=== PATIENT | female | born 1985 | race Caucasian/White ===

== ENCOUNTER 2020-12-11 06:28 | Inpatient (IN) | payer BC ==
[2020-12-11] MEDS ORDERED: LIDOCAINE 0.5% (PF) 5 MG/ML (50 ML SDV) SQ PRN (06:46)
[2020-12-11] MEDS ORDERED: METHYLERGONOVINE 0.2 MG/ML 1 ML AMP IM PRN (06:46)
[2020-12-11] MEDS ORDERED: TERBUTALINE 1 MG/ML VIAL SQ PRN (06:46)
[2020-12-11] MEDS ORDERED: OXYTOCIN 10 UNIT/ML 1 ML VIAL IM PRN (06:46)
[2020-12-11] MEDS ORDERED: CARBOPROST TROMETHAMINE 250 MCG/ML 1 ML AMP IM PRN (06:46)
[2020-12-11 06:55] VITALS: RESP 16
[2020-12-11] MEDS: LACTATED RINGERS 1,000 ML IV SCH ×2 (06:55→13:25)
[2020-12-11] MEDS ORDERED: OXYTOCIN 30 UNITS/500 ML NS 30 UNIT in SALINE 1 500ML.BAG IV SCH ×2 (07:00→19:15)
[2020-12-11 07:14] LABS: Basophils % (A) 0 %; Eosinophils # (A) 0.1 k/uL (0-0.7); Eosinophils % (A) 1 %; HCT 35.5 % (34.0-46.0); HGB 12.2 gm/dL (11.4-16.0); Lymphocytes # (A) 1.5 k/uL (1.0-4.8); Lymphocytes % (A) 21 %; MCHC 34.3 g/dL (31.0-37.0); MCV 93.5 fL (80.0-100.0); Mean Platelet Volume 11.4; Monocytes # (A) 0.5 k/uL (0-1.0); Monocytes % (A) 7 %; Neutrophils % (A) 69 %; Platelet Count 196 k/uL (150-450); RDW 12.2 % (11.5-15.5); WBC 7.3 k/uL (3.8-10.6)
[2020-12-11] MEDS ORDERED: BUTORPHANOL 1 MG/ML 1 ML VIAL IV PRN (08:53)
--- NOTE | 2020-12-11 08:53 | P.HPOB ---
History of Present Illness H&P Date: 12/11/20 Chief Complaint: 39 and one sevenths weeks, elective induction The patient is a 34-year-old 3 para 1011 admitted at 39 and one sevenths weeks as established by seven-week ultrasound. She is admitted for elective induction with all signs reassuring. Her has been uncomplicated. She falls into the category of advanced maternal age and declined trisomy testing. Group B strep status is negative. Obstetrical history: 3 para 1011 with 1 early miscarriage and one term vaginal delivery without compilations. Current statistics are listed in history present illness. EDC of 12/17/2020 was established by seven-week ultrasound. Laboratory workup demonstrates a blood type of O+ with a negative antibody screen. Rubella status is immune. The remainder of the laboratory workup was within normal limits. One hour Glucola was normal and group B strep status is negative. Gynecologic history: Unremarkable with no history of any infections to include STDs. Review of Systems Review of systems is confined to history of present illness. Past Medical History Additional Past Medical History / Comment(s): heart murmur History of Any Multi-Drug Resistant Organisms: None Reported Additional Past Surgical History / Comment(s): lasik surgery 2007 Carpal Tunnel surgery 2016 Past Anesthesia/Blood Transfusion Reactions: No Reported Reaction Past Psychological History: Anxiety Smoking Status: Never smoker Past Alcohol Use History: None Reported Past Drug Use History: None Reported - Past Family History Father Family Medical History: COPD Additional Family Medical History / Comment(s): Anxiety Medications and Allergies Home Medications Medication Instructions Recorded Confirmed Type Pkw-Gicg-Snjsp Acid 1 tab PO DAILY 09/07/13 12/11/20 History [-U Capsule (formulary)] Loratadine-Pseudoeph 10-240 mg 10 tab PO DAILY 12/11/20 12/11/20 History [Claritin-D 24 Hour] Allergies Allergy/AdvReac Type Severity Reaction Status Date / Time No Known Allergies Allergy Verified 12/11/20 06:44 Exam Vital Signs Temp Pulse Resp BP 12/11/20 06:48 98.0 F 91 16 111/71 Intake and Output 12/10/20 12/11/20 12/11/20 22:59 06:59 14:59 Other: Weight 89.811 kg In general, this is a well-developed, well-nourished white female in no acute distress. Her heart has a regular rhythm and rate without murmur. Her lungs are clear to auscultation bilaterally in all hooker. Her abdomen is gravid, nondistended, has normal active bowel sounds, soft, nontender, and without any palpable masses aside from the uterine fundus. Her extremities are without any cyanosis, clubbing, or edema and are nontender to palpation bilaterally. Digital cervical examination on straights her cervix to be 2+ centimeters dilated, 60% effaced, with the vertex in presentation at -2 station. Artificial rupture of membranes is carried out demonstrating minimal clear fluid. Results Result Diagrams: 12/11/20 06:52 Assessment and Plan (1) Term Current Visit: Yes Status: Acute Code(s): Z34.90 - ENCNTR FOR SUPRVSN OF NORMAL , UNSP, UNSP TRIMESTER SNOMED Code(s): 35615202 Plan: The patient is admitted for elective induction of labor. The risks and, occasions of elective induction of been discussed and she is understood and agreed to proceed. Pitocin augmentation has been started and she has undergone artificial rupture members. She'll have close maternal and surveillance and expectant management will be practiced. She is a good candidate for either IV or epidural analgesia, whichever she may choose.
[2020-12-11] MEDS ORDERED: ROPIVACAINE 5MG/ML 20ML VIAL ONE (14:58)
[2020-12-11] MEDS ORDERED: fentaNYL (PF) 50 MCG/ML 5 ML AMP ONE (14:58)
[2020-12-11] MEDS ORDERED: SODIUM CHLORIDE 0.9% 100 ML BAG ONE (14:58)
[2020-12-11] MEDS ORDERED: diphenhydrAMINE 50 MG CAP PO PRN (19:14)
[2020-12-11] MEDS ORDERED: LANOLIN CREAM 5 GM TUBE TOPICAL PRN (19:14)
[2020-12-11] MEDS ORDERED: SIMETHICONE 80 MG CHEWABLE PO PRN (19:14)
[2020-12-11] MEDS ORDERED: diphenhydrAMINE 25 MG CAP PO PRN (19:14)
[2020-12-11] MEDS ORDERED: ZOLPIDEM 5 MG TAB PO PRN (19:14)
[2020-12-11] MEDS ORDERED: HYDROcodone/APAP 5-325MG 1 EACH TAB PO PRN (19:14)
[2020-12-11] MEDS ORDERED: BENZOCAINE/MENTHOL SPRAY 1 GM/SPRAY AEROSOL TOPICAL PRN (19:14)
[2020-12-11] MEDS ORDERED: diphenhydrAMINE 50 MG/ML 1 ML VIAL IVP PRN ×2 (19:14)
[2020-12-11] MEDS ORDERED: HYDROCORTISONE 2.5% RECTAL CREAM 30 GM TUBE RECTAL PRN (19:14)
[2020-12-11] MEDS ORDERED: HYDROcodone/APAP 7.5-325MG 1 EACH TAB PO PRN (19:14)
--- NOTE | 2020-12-11 19:18 | P.PROBDLV ---
Vaginal Delivery Note - . Vaginal Delivery Note: The patient is a 34-year-old 3 para 1011 admitted at 39 and one sevenths weeks by good dating parameters perches admitted for elective induction of labor secondary to discomfort. Her has been entirely uncomplicated and group B strep status is negative. On labor and delivery, all signs reassuring with a category 1 heart rate tracing. She had Pitocin augmentation started followed by artificial rupture of membranes for clear fluid. She made progress through the latent phase of labor and had an epidural catheter placed for analgesia. She then progressed ultimately to complete and pushed over the course of 1 contraction to a normal spontaneous vaginal delivery of a viable 7 lbs. 5 oz. baby boy with Apgars of 8 at 1 minute and 9 at 5 minutes delivered in the left occiput anterior position. There was a nuchal cord 1 which was reduced following delivery of the infant. The placenta was delivered spontaneously, intact, and grossly normal with a grossly normal three-vessel cord inserted approximate 4-5 cm from the margin of the placental disc. There were no lacerations of the perineum, vagina, or cervix. All sponge, instrument, needle counts were correct. There were no complications. Estimated blood loss is approximately 200 mL. Both mother and infant are resting comfortably in recovery.
[2020-12-11] MEDS: SENNOSIDES-DOCUSATE SODIUM 1 EACH TAB PO SCH (22:55)
[2020-12-12 07:34] LABS: Basophils # (A) 0.1 k/uL (0-0.2); Basophils % (A) 0 %; Eosinophils # (A) 0.1 k/uL (0-0.7); Eosinophils % (A) 1 %; HCT 36.5 % (34.0-46.0); HGB 12.4 gm/dL (11.4-16.0); Lymphocytes # (A) 1.5 k/uL (1.0-4.8); Lymphocytes % (A) 10 %; MCH 32.3 pg (25.0-35.0); Mean Platelet Volume 10.8; Monocytes # (A) 0.8 k/uL (0-1.0); Monocytes % (A) 5 %; Neutrophils % (A) 82 %; Platelet Count 202 k/uL (150-450); RBC 3.85 m/uL (3.80-5.40); RDW 12.9 % (11.5-15.5); WBC 14.7 k/uL (3.8-10.6)
[2020-12-12] MEDS: SENNOSIDES-DOCUSATE SODIUM 1 EACH TAB PO SCH (07:44)
[2020-12-12] MEDS: IBUPROFEN 600 MG TAB PO PRN ×2 (07:44→13:57)
--- NOTE | 2020-12-12 08:40 | P.DS ---
Providers Date of admission: 12/11/20 06:28 Expected date of discharge: 12/12/20 Attending physician: Joel Machado Primary care physician: Stated None - Discharge Diagnosis(es) (1) Term Current Visit: Yes Status: Acute (2) Normal vaginal delivery Current Visit: Yes Status: Acute Hospital Course: The patient is a 34-year-old 3 para 1011 admitted at 39 and one sevenths weeks by good dating parameters. She is admitted for elective induction with all signs reassuring. Her was uncomplicated and group B strep status is negative. On labor and delivery, she had Pitocin started followed by artificial rupture of membranes. She progressed and had an epidural catheter placed and ultimately progressed to complete. She pushed quickly to a normal spontaneous vaginal delivery of a viable 7 lbs. 5 oz. baby boy with Apgars of 8 at 1 minute and 9 at 5 minutes. Her course was unremarkable vital signs remaining stable and her temperature was afebrile throughout. She was deemed stable for discharge on day #1 and was discharged to home to follow-up in the office in 6 weeks' time routinely. Discharge instructions included calling for any significantly increased bleeding or foul-smelling lochia, significantly increased fever abdominal pain, perineal complaints, breast complaints, or anything else that concerned her. She was additionally instructed to have nothing in the vagina for at least 6 weeks time to include intercourse. She understood her instructions and agrees to follow up as noted above. Discharge medications included only [id number]-[id number] analgesic pain medications as well as continued vitamins as she has opted to breast- feed. Maternal blood type is O+ and rubella status is immune. Procedures: #1. Pitocin induction #2. Artificial rupture of membranes #3. Epidural analgesia #4. Normal spontaneous vaginal delivery Patient Condition at Discharge: Stable Plan - Discharge Summary New Discharge Prescriptions: No Action Oek-Iaej-Qkhfa Acid [-U Capsule (formulary)] 1 tab PO DAILY Loratadine-Pseudoeph 10-240 mg [Claritin-D 24 Hour] 10 tab PO DAILY Discharge Medication List Eqt-Ktqr-[id number] Acid [-U Capsule (formulary)] 1 tab PO DAILY 09/07/13 [History] Loratadine-Pseudoeph 10-240 mg [Claritin-D 24 Hour] 10 tab PO DAILY 12/11/20 [History] Follow up Appointment(s)/Referral(s): Joel Machado MD [STAFF PHYSICIAN] - 6 Weeks Discharge Disposition: HOME SELF-CARE
[2020-12-12 17:50] VITALS: BP 111/68; PULSE 78; TEMP 97.4
== END 2020-12-12 19:20 | disposition home or self-care (01) | DRG 807 ==
LOC: 4FBP 06:28
PROVIDERS: ADMIT Obstetrics & Gynecology; ATTEND Obstetrics & Gynecology
PROC: 10E0XZZ Delivery of Products of Conception, External Approach (ICD-10-PCS; principal; 2020-12-11)
PROC: 3E033VJ Introduction of Other Hormone into Peripheral Vein, Percutaneous Approach (ICD-10-PCS; 2020-12-11)
PROC: 10907ZC Drainage of Amniotic Fluid, Therapeutic from Products of Conception, Via Natural or Artificial Opening (ICD-10-PCS; 2020-12-11)
DX: O99.344 Other mental disorders complicating childbirth (principal); Z37.0 Single live birth; F41.9 Anxiety disorder, unspecified; O69.81X0 Labor and delivery complicated by cord around neck, without compression, not applicable or unspecified; Z82.5 Family history of asthma and other chronic lower respiratory diseases; Z3A.39 39 weeks gestation of pregnancy
CPT/HCPCS: 85025; 86850; 86900; 86901

== ENCOUNTER → 2022-01-26 | Outpatient (CLI) | payer BC ==
--- NOTE | 2022-01-26 14:25 | MR ---
MR brain without contrast HISTORY: Headaches and dizziness, history of trauma Multiplanar multisequence imaging obtained through the brain No comparisons There is no restricted diffusion. The corpus callosum, pituitary, cervical medullary junction, cerebe llopontine angles are normal. There is no hemorrhage or hydrocephalus. Orbits show symmetric appearan ce. There are expected vascular flow voids. Some mild inflammatory change present in the ethmoid air cells, left maxillary sinus. Mastoids are well aerated. Brain signal is maintained. Probable Thorn[place] dt cyst noted in the midline posterior pharyngeal soft tissues. IMPRESSION: Normal brain MRI. Mild sinus disease and additional findings above
== END | disposition home or self-care (01) ==
LOC: RADMRIMAIN 09:31
PROVIDERS: ATTEND Nurse Practitioner Family
DX: Q04.8 Other specified congenital malformations of brain (principal)
CPT/HCPCS: 70551

== ENCOUNTER 2022-05-20 07:35 | Day surgery (SDC) | payer BC ==
[2022-05-15 12:22] VITALS: BMI 28.6
[~2022-05-20 07:35] MED LIST: DEXAMETHASONE SOD PHOSPHATE 4 MG/ML 1 ML VIAL IV ONE; DEXAMETHASONE SOD PHOSPHATE 4 MG/ML 1 ML VIAL IV PRN; FAMOTIDINE 20 MG/2 ML VIAL IV PRN; HYDROmorphone 0.5 MG/0.5 ML SYRINGE IVP PRN; LACTATED RINGERS 1,000 ML IV SCH; LIDOCAINE 1% (10MG/ML) FOR IV START INTRADERMA PRN; ONDANSETRON 4 MG/2 ML VIAL IVP ONE; ONDANSETRON 4 MG/2 ML VIAL IVP PRN; OXYMETAZOLINE 0.05% NASL SPRAY 1 SPRAY BOTTLE EA NOSTRIL PRN; SCOPOLAMINE 1 MG/72 HR PATCH TRANSDERM ONE
[2022-05-20] MEDS ORDERED: MIDAZOLAM 2 MG/2 ML VIAL IVP ONE (08:50)
[2022-05-20] MEDS ORDERED: MIDAZOLAM 2 MG/2 ML VIAL ONE (10:02)
[2022-05-20] MEDS ORDERED: fentaNYL (PF) 50 MCG/ML 2 ML AMP ONE (10:02)
[2022-05-20] MEDS ORDERED: LIDOCAINE 4% LTA KIT (4 ML) TOPICAL ONE (10:02)
[2022-05-20] MEDS ORDERED: PROPOFOL 10 MG/ML 20 ML VIAL IV ONE (10:02)
[2022-05-20] MEDS ORDERED: LIDOCAINE 2% INJ 20 MG/ML (2 ML VIAL) ONE (10:02)
[2022-05-20] MEDS ORDERED: SUCCINYLCHOLINE CHLORIDE 200 MG/10 ML VIAL IV ONE (10:02)
[2022-05-20] MEDS ORDERED: LIDOCAINE 1%-EPI 1:100,000 20 ML VIAL SQ ONE (10:33)
[2022-05-20] MEDS ORDERED: BACITRACIN ZINC 500 UNIT/GM OINT 28.4 GM TUBE TOPICAL ONE (11:03)
--- NOTE | 2022-05-20 11:13 | P.OP ---
Date of Procedure: 05/20/22 Preoperative Diagnosis: Deviated nasal septum Inferior turbinate hypertrophy Chronic sinusitis Nasopharyngeal cyst Postoperative Diagnosis: Same Procedure(s) Performed: Septoplasty Outfracture and submucous resection of the inferior turbinates Bilateral endoscopic sinus surgery including bilateral maxillary antrostomy Excision Nasopharyngeal cyst Anesthesia: KARMEN Surgeon: Eliud Mcclain Estimated Blood Loss (ml): 8 Pathology: other (Nasal septal bone and cartilageSinus contentsNasopharyngeal cyst) Condition: stable Disposition: PACU Indications for Procedure: This 36 show white female whose had difficulties with chronic nasal airway obstruction recurrent and chronic sinusitis as well as notable nasopharyngeal cyst on nasal endoscopy Operative Findings: Nasal septum deviated to the left with inferior turbinate hypertrophy bilaterally maxillary ostia were obstructed bilaterally with thickening throughout the maxillary sinuses, approximate 1.5 cm nasopharyngeal cyst on the posterior superior Description of Procedure: The patient was brought into the operative suite and placed in a supine position. The patient underwent induction of general anesthesia with oral endotracheal intubation without difficulty. The patient was prepped and draped in the usual aseptic fashion with the orbits in the operating field for monitoring to the case and the computed tomography scan was on the computer screen for review throughout the case. 1% lidocaine with 1 :100,000 epinephrine was infused submucosally into both sides of the nasal septum as well as the lateral nasal wall and anterior tips of the middle turbinates. While this was taking vasoconstrictive effect the inferior turbinates were infractured with [place] elevator and partial submucous resection of the inferior turbinates was performed with a portion of the s ubmucosal soft tissue and the inferior turbinate bone removed with Coblation device. The inferior turbinates were then outfractured with the [place] elevator. A left hemitransfixion incision was then made with the mucoperichondrial and mucoperiosteal flap on the left elevated. The bony cartilaginous junction was disarticulated and the mucoperiosteal flap on the right was elevated. Bony nasal septal deformities were removed with Bernabe forceps and an inferior cartilaginous strip was removed leaving a full 1.5 cm caudal strut. Checking intranasally this corrected the nasoseptal deformities and the hemitransfixion incision was closed with a running 4-0 chromic suture. Full 0 endoscopic examination is performed bilaterally. Beginning on the left, the middle turbinate was medialized. The maxillary ostium was located with a ballpoint probe and an infundibulotomy was performed followed by uncinectomy. The maxillary antrostomy was enlarged at the expense of the anterior and posterior fontanelle taking care anteriorly not to injure the lacrimal bone. The maxillary sinus was evaluated with 30 and 70 endoscope . Attention was then turned to the right where the right middle turbinate was medialized maxillary ostium was opened as on the left. The nasopharynx cyst was then excised under the endoscopic evaluation and visualization with straight Blakesley forceps marsupializing this. Hemostasis was gained with suction cautery. There was thick mucous drainage in this cyst which was suctioned. Excellent hemostasis was noted. [Nasopore nasal dressing was placed in the middle meatus bilaterally under direct visualization]. Bilateral Valdez airway splints coated with bacitracin ointment were placed and sutured transseptally with a 4-0 nylon suture. The patient was suctioned in oral gastric fashion and was allowed to emerge from general anesthesia having tolerated procedure well and was extubated in the operating suite and transferred to the postoperative recovery area in satisfactory condition.
[2022-05-20 11:20] VITALS: TEMP 97.7
[2022-05-20] MEDS ORDERED: HYDROmorphone 0.5 MG/0.5 ML SYRINGE IVP ONE (11:36)
[2022-05-20] MEDS ORDERED: HYDROcodone/APAP 5-325MG 1 EACH TAB ONE (12:35)
[2022-05-20] MEDS ORDERED: HYDROcodone/APAP 5-325MG 1 EACH TAB PO ONE (12:37)
[2022-05-20 12:45] VITALS: BP 128/62; PULSE 59; RESP 15
== END 2022-05-20 13:07 | disposition home or self-care (01) ==
LOC: OR 07:35
PROVIDERS: ATTEND Otolaryngology
DX: J34.2 Deviated nasal septum (principal); J34.3 Hypertrophy of nasal turbinates; J01.90 Acute sinusitis, unspecified; F32.A Depression, unspecified; Z79.899 Other long term (current) drug therapy; J39.2 Other diseases of pharynx
CPT/HCPCS: 81025; 30520; 31267; 41800; 30140; J2250; J0330; J1100; J0690; J2405; J3010; J2704; J1170; J2001

== ENCOUNTER → 2023-07-01 | Day surgery (SDC) | payer BC ==
[2023-06-28 16:15] VITALS: BMI 28.1
[2023-07-01] MEDS: SODIUM CHLORIDE 0.9% 1,000 ML IV SCH (08:02)
[2023-07-01 08:26] VITALS: BP 115/73; PULSE 84; RESP 16; TEMP 98.4
[2023-07-01 14:54] LABS: HCT 43.1 % (34.0-46.0); HGB 14.3 gm/dL (11.4-16.0); MCH 31.2 pg (25.0-35.0); MCHC 33.2 g/dL (31.0-37.0); MCV 93.9 fL (80.0-100.0); Mean Platelet Volume 9.9; Platelet Count 273 k/uL (150-450); RBC 4.59 m/uL (3.80-5.40); RDW 12.4 % (11.5-15.5); WBC 5.1 k/uL (3.8-10.6)
[2023-07-01 15:02] LABS: Potassium 3.8 mmol/L (3.5-5.1)
[2023-07-01 15:03] LABS: African American GFR (CKD) >90 (>60 ml/min/1.73 sqM); Albumin 3.9 g/dL (3.5-5.0); Anion Gap 5 mmol/L; Blood Urea Nitrogen 14 mg/dL (7-17); Calcium 8.9 mg/dL (8.4-10.2); Carbon Dioxide 28 mmol/L (22-30); Chloride 106 mmol/L (98-107); Glucose 91 mg/dL (74-99); Non-African American GFR(CKD) 88 (>60 ml/min/1.73 sqM); Phosphorus 2.8 mg/dL (2.5-4.5); Sodium 139 mmol/L (137-145)
--- NOTE | 2023-07-01 17:25 | P.EPPROC ---
- EP Procedure Note Electrophysiology Procedure Note: Diagnosis Recurrent presyncope Twelve-lead EKG shows sinus mechanism normal CT narrow QRS normal ST segments No epsilon waves no delta waves normal QT interval no Brugada morphology Tilt table test per protocol Baseline blood pressure 109/64 mmHg, baseline heart rate 72 beats a minute Patient was tilted upright in angle of 70 degrees per protocol no change in blood pressure increase in heart rate up to 108 beats minute in the first 10 minutes Later she felt cold and clammy and dizzy and at that time her blood pressure was 118/74 mmHg Heart rate 120 beats a minute No syncope no secondary neurocardiogenic phenomena noted When she was laid supine heart rate came down to 80 beats a minute Impression Normal twelve-lead EKG Evidence of postural tachycardia without any secondary neurocardiogenic phenomena
[2023-07-01 20:40] LABS: Chol/HDL Ratio 2.95 Ratio; LDL Cholesterol,Calculated 107.6 mg/dL (0.0-131.0); VLDL Calculation 15.36 mg/dL (5.00-40.00)
== END ==
LOC: CATHEP 07:33
PROVIDERS: ATTEND Internal Medicine Clinical Cardiac Electrophysiology
DX: R55 Syncope and collapse (principal)
CPT/HCPCS: 80061; 80069; 81025; 82533; 84443; 85027; 93660